=== PATIENT | female | born 1965 | race African-American/Black ===

== ENCOUNTER 2018-08-13 11:41 | Outpatient (CLI) | payer OTHER ==
--- NOTE | 2018-08-13 12:05 | RAD ---
LUMBAR SPINE THREE VIEWS: History: Low back pain. FINDINGS/IMPRESSION: No fracture, subluxation, or bony destruction is seen. Minimal degenerative changes are noted. POS: [facility]
--- NOTE | 2018-08-13 12:06 | RAD ---
CERVICAL SPINE FOUR VIEWS: History: Neck pain. FINDINGS: Degenerative changes are seen in at C4-5. No fracture, subluxation, or bony destruction is identified . IMPRESSION: Cervical spondylosis. POS: [facility]
== END 2018-08-13 11:42 | disposition home or self-care (01) ==
LOC: RAD-FRANK 11:41
PROVIDERS: ATTEND Nurse Practitioner Family
DX: M54.2 Cervicalgia (principal); M54.5 Low back pain; M47.812 Spondylosis without myelopathy or radiculopathy, cervical region; M47.816 Spondylosis without myelopathy or radiculopathy, lumbar region
CPT/HCPCS: 72040; 72100

== ENCOUNTER 2022-05-25 00:17 | Emergency (ER) | payer OTHER ==
[2022-05-25] MEDS ORDERED: HYDROcodone/Acetaminophen 10/325 mg Tablet ONE (00:58)
== END 2022-05-25 01:50 | disposition home or self-care (01) ==
LOC: ERS 00:17
DX: S46.911A Strain of unspecified muscle, fascia and tendon at shoulder and upper arm level, right arm, initial encounter (principal); S16.1XXA Strain of muscle, fascia and tendon at neck level, initial encounter; S09.90XA Unspecified injury of head, initial encounter; V89.2XXA Person injured in unspecified motor-vehicle accident, traffic, initial encounter; F17.210 Nicotine dependence, cigarettes, uncomplicated
CPT/HCPCS: 70450; 72125